=== PATIENT | female | born 1990 | race Caucasian/White ===

== ENCOUNTER 2024-07-03 14:58 | Emergency (ER) | payer OTHER, SELFPAY ==
[2024-07-03] VITALS (36 sets, daily range): BP systolic 127–160; BP diastolic 84–105; PULSE 100–134; TEMP 36.8; O2SAT 97–100; BMI 38.3
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
[2024-07-03 15:22] LABS: Basophils Absolute Auto 0.1 10^3/uL (0.0-0.1); Basophils Percent Auto 0.5 % (0.2-2.0); Eosinophils Absolute Auto 0.4 10^3/uL (0.0-0.7); Eosinophils Percent Auto 3.6 % (0.9-7.0); Hematocrit 41.2 % (36.0-48.0); Hemoglobin 14.2 g/dL (12.0-16.0); Immature Granulocytes Abs Auto 0.03 10^3/uL (0.00-0.03); Immature Granulocytes Pct Auto 0.2 % (0.0-0.5); Lymphocytes Absolute Auto 3.1 10^3/uL (1.2-3.8); Lymphocytes Percent Auto 26.1 % (20.5-60.0); Mean Corpuscular HGB Conc 34.5 g/dL (29.9-35.2); Mean Corpuscular Hemoglobin 28.9 pg (26.7-34.0); Mean Corpuscular Volume 83.7 fL (81.0-99.0); Mean Platelet Volume 9.2 fL (9.5-13.5); Monocytes Absolute Auto 0.9 10^3/uL (0.3-0.8); Monocytes Percent Auto 7.6 % (1.7-12.0); Neutrophils Absolute Auto 7.5 10^3/uL (1.4-6.5); Platelet Count 403 10^3/uL (150-450); Red Blood Count 4.92 10^6/uL (4.20-5.40)
[2024-07-03] MEDS: 0.9 % SODIUM CHLORIDE 1,000 ML 1000 ML IV ×3 (15:26→18:27)
[2024-07-03 15:35] LABS: HCG Qualitative NEGATIVE (NEGATIVE); Internal Control Within Normal Limits
[2024-07-03 15:42] LABS: INR 0.97; Partial Thromboplastin Time 31.9 sec (22.3-36.2); Prothrombin Time 10.3 sec (9.0-11.6)
[2024-07-03] MEDS: LORAZEPAM 2 MG/ML VIAL 1 MG IV (16:13)
--- NOTE | 2024-07-03 16:35 | ECG_ITS ---
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
[2024-07-03 17:19] LABS: Alanine Aminotransferase 18 U/L (14-59); Albumin Globulin Ratio 0.9; Albumin Level 3.7 g/dL (3.4-5.0); Alkaline Phosphatase 106 U/L (46-116); Anion Gap 11.1; Aspartate Amino Transferase 12 U/L (15-37); BUN Creatinine Ratio 19.8; Bilirubin Total 0.2 mg/dL (0.2-1.0); Carbon Dioxide 26.8 mmol/L (21.0-32.0); Chloride 103 mmol/L (98-107); Estimated GFR (African America >60 (>=60 mL/min/1.73m^2); Estimated GFR (Non-African Ame >60 (>=60 mL/min/1.73m^2); Globulin 3.9 g/dL; Glucose 107 mg/dL (74-106); Potassium 3.9 mmol/L (3.5-5.1); Sodium 137 mmol/L (136-145); Total Protein 7.6 g/dL (6.4-8.2)
[2024-07-03] MEDS: KETOROLAC TROMETHAMINE 30 MG/ML VIAL IVP (18:27)
[2024-07-03] MEDS: HYDROCODONE/ACET 5-325 MG TABLET 1 TAB PO (18:27)
[2024-07-03 19:06] LABS: Basophils Absolute Auto 0.1 10^3/uL (0.0-0.1); Basophils Percent Auto 0.4 % (0.2-2.0); Eosinophils Absolute Auto 0.2 10^3/uL (0.0-0.7); Eosinophils Percent Auto 1.1 % (0.9-7.0); Hemoglobin 12.4 g/dL (12.0-16.0); Immature Granulocytes Abs Auto 0.05 10^3/uL (0.00-0.03); Immature Granulocytes Pct Auto 0.4 % (0.0-0.5); Lymphocytes Absolute Auto 2.5 10^3/uL (1.2-3.8); Lymphocytes Percent Auto 17.8 % (20.5-60.0); Mean Corpuscular HGB Conc 34.4 g/dL (29.9-35.2); Mean Corpuscular Hemoglobin 28.9 pg (26.7-34.0); Mean Corpuscular Volume 83.9 fL (81.0-99.0); Mean Platelet Volume 9.3 fL (9.5-13.5); Monocytes Absolute Auto 0.9 10^3/uL (0.3-0.8); Monocytes Percent Auto 6.6 % (1.7-12.0); Neutrophils Absolute Auto 10.5 10^3/uL (1.4-6.5); Neutrophils Percent Auto 73.7 % (43.0-75.0); Platelet Count 353 10^3/uL (150-450); Red Blood Count 4.29 10^6/uL (4.20-5.40); White Blood Count 14.2 10^3/uL (4.0-11.0)
--- NOTE | 2024-07-03 20:00 | ECG_ITS ---
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
[2024-07-03] MEDS: METOPROLOL TARTRATE 5 MG/5 ML VIAL IVP (20:20)
== END 2024-07-03 20:55 | disposition home or self-care (01) ==
PROVIDERS: Physician Assistant; Emergency Provider Emergency Medicine; PCP Family Medicine
DX: S90.31XA Contusion of right foot, initial encounter (principal); S20.219A Contusion of unspecified front wall of thorax, initial encounter; V43.54XA Car driver injured in collision with van in traffic accident, initial encounter; S40.212A Abrasion of left shoulder, initial encounter; S40.211A Abrasion of right shoulder, initial encounter; S30.811A Abrasion of abdominal wall, initial encounter; R00.0 Tachycardia, unspecified
CPT/HCPCS: 36415; 70450; 70486; 71260; 72125; 73110; 73630; 74177; 80053; 84443; 84703; 85025; 85610; 85730; 93005; 96374; 96375; 99285; J1885; J2060; Q9967